=== PATIENT | female | born 1945 | race Caucasian/White ===

== ENCOUNTER → 2016-12-05 | Outpatient (CLI) | payer OTHER | LOC: FIMAGING 09:46 | PROVIDERS: ATTEND Orthopaedic Surgery | DX: M17.12 Unilateral primary osteoarthritis, left knee (principal) ==

== ENCOUNTER 2016-12-19 09:25 | Observation (INO) | payer OTHER ==
[~2016-12-19 09:25] MED LIST: ACETAMINOPHEN 325 MG TAB PO ONE; CEFAZOLIN 2 GM/DEXTR 100 ML IV ONE; CHLORHEXIDINE GLUC HIBICLENS 118 ML BTL TP ONE; DEXAMETHASONE 4 MG/ML VIAL IVP ONE; FAMOTIDINE 20 MG TAB PO ONE; ROPI/epiNEPH/KETOROLAC JOINT COCKTAIL IU ONE; TRANEXAMIC ACID 3,000 MG in NS 50 ML IRR ONE; TRANEXAMIC ACID 3,000 MG/50 ML BAG IRR ONE; VANCOMYCIN 1 GM VIAL ONE
[2016-12-19] MEDS ORDERED: ACETAMINOPHEN 325 MG TAB ONE (09:47)
[2016-12-19] MEDS ORDERED: CEFAZOLIN 2 GM/DEXTROSE/100 ML BAG IV ONE (09:47)
[2016-12-19] MEDS ORDERED: DEXAMETHASONE 4 MG/ML VIAL ONE (09:47)
[2016-12-19] MEDS ORDERED: FAMOTIDINE 20 MG TAB ONE (09:47)
[2016-12-19] MEDS ORDERED: LR 1,000 ML IV ONE (10:23)
[2016-12-19] MEDS ORDERED: PROPOFOL/EMULSION 500 MG/50 ML BOTTLE IV ONE (11:18)
[2016-12-19] MEDS ORDERED: LIDOCAINE 2% 100 MG/5 ML SYR ONE (11:18)
[2016-12-19] MEDS ORDERED: MIDAZOLAM 2 MG/2 ML VIAL ONE (11:44)
[2016-12-19] MEDS ORDERED: ROPIVACAINE HCL 150 MG/30 ML INJ ONE (12:43)
[2016-12-19] MEDS ORDERED: TEMAZEPAM 15 MG CAP PO PRN (13:26)
[2016-12-19] MEDS ORDERED: PROMETHAZINE HCL 25 MG/ML INJ IVP PRN (13:26)
[2016-12-19] MEDS ORDERED: CYCLOBENZAPRINE 10 MG TAB PO PRN (13:26)
[2016-12-19] MEDS ORDERED: POLYETHYLENE GLYCOL 3350 17 GM PKT PO PRN (13:26)
[2016-12-19] MEDS ORDERED: MAGNESIUM HYDROXIDE 30 ML UDCUP PO PRN (13:26)
[2016-12-19] MEDS ORDERED: METOCLOPRAMIDE 10 MG/2 ML VIAL IVP PRN (13:26)
[2016-12-19] MEDS ORDERED: ONDANSETRON 4 MG/2 ML VIAL IVP PRN (13:26)
[2016-12-19] MEDS ORDERED: diphenhydrAMINE 25 MG CAP PO PRN (13:26)
[2016-12-19] MEDS ORDERED: PHARMACY PAIN CONSULT 1 EA MISC PRN (13:26)
[2016-12-19] MEDS ORDERED: DIPHENOXYLATE/ATROPINE LOMOTIL 1 TAB PO PRN (13:26)
[2016-12-19] MEDS ORDERED: LACTULOSE 20 GM/30 ML UDCUP PO PRN (13:26)
[2016-12-19] MEDS ORDERED: ONDANSETRON DISINTEGRATING 4 MG TAB PO PRN (13:26)
[2016-12-19] MEDS ORDERED: PROMETHAZINE HCL 25 MG SUPPR PR PRN (13:26)
[2016-12-19] MEDS ORDERED: BISACODYL 10 MG SUPP PR PRN (13:26)
--- NOTE | 2016-12-19 13:26 | POSTOPPROG ---
Post Op Note Date of Operation: 12/19/16 Surgeon: Cassidy Dueñas Exhauster Engineer: chung dueñas Anesthesiologist: dr. white Anesthesia: Spinal, Other (Specify) (adductor canal block) Pre-op Diagnosis: left knee OA Post-op Diagnosis: same Indication: left knee pain due to OA that failed conservative measures Procedure: left medial knee arthroplasty Findings: severe medial knee OA Inf/Abcess present in the surg proc area at time of surgery?: No EBL: 50-100
[2016-12-19] MEDS ORDERED: LR 1,000 ML IV SCH (13:30)
[2016-12-19] MEDS ORDERED: fentaNYL 100 MCG/2 ML INJ ONE (13:58)
[2016-12-19] MEDS: oxyCODONE IR 5 MG TAB PO PRN ×2 (17:04→22:18)
[2016-12-19] MEDS: ACETAMINOPHEN 325 MG TAB PO SCH ×2 (17:04→23:58)
[2016-12-19] MEDS: ceFAZolin 2 GM/DEXTROSE 100 ML IV SCH (19:43)
[2016-12-19] MEDS ORDERED: NON-FORMULARY NEW DRUG (Glimepiride [Amaryl] 4 MG) PO SCH (21:00)
[2016-12-19] MEDS ORDERED: D50W 25 GM/50 ML SYR IVP PRN (21:53)
[2016-12-19] MEDS: GLIMEPIRIDE 2 MG TAB PO SCH (21:56)
[2016-12-19] MEDS: FAMOTIDINE 20 MG TAB PO SCH (21:56)
[2016-12-19] MEDS: ASPIRIN 325 MG TAB PO SCH (21:56)
[2016-12-19] MEDS: SENNOSIDES/DOCUSATE SODIUM TAB PO SCH (21:57)
[2016-12-19] MEDS: INSULIN LISPRO 100 UNIT/ML SC SCH (22:02)
[2016-12-19 23:37] VITALS: RESP 16
[2016-12-20] MEDS: ceFAZolin 2 GM/DEXTROSE 100 ML IV SCH (04:03)
[2016-12-20] MEDS: oxyCODONE IR 5 MG TAB PO PRN ×3 (04:09→11:12)
[2016-12-20 05:30] LABS: HEMATOCRIT 36.6 % (38.0-47.0)
[2016-12-20] MEDS: ACETAMINOPHEN 325 MG TAB PO SCH ×2 (05:36→11:13)
[2016-12-20 07:42] VITALS: BP 135/74; PULSE 51; TEMP 97.5; O2SAT 94
[2016-12-20] MEDS: INSULIN LISPRO 100 UNIT/ML SC SCH (07:47)
[2016-12-20] MEDS: ASPIRIN 325 MG TAB PO SCH (07:55)
[2016-12-20] MEDS: GLIMEPIRIDE 2 MG TAB PO SCH (07:55)
[2016-12-20] MEDS: FAMOTIDINE 20 MG TAB PO SCH (07:55)
[2016-12-20] MEDS: SENNOSIDES/DOCUSATE SODIUM TAB PO SCH (07:56)
--- NOTE | 2016-12-20 08:15 | SOAPPROG ---
SOAP Progress Note Assessment/Plan: Assessment: Patient is doing well POD 1 s/p L med MPL Pain management: pain is well controlled on oral pain meds. VTE ppx: recommend aspirin daily for 3 weeks, cont ERLINDA and SCDs Anemia: level is expected initially postop. Asymptomatic. Continue to monitor D/c planning: d/c to home today pending release from PT hyperglycemia: recommend insulin sliding scale last evening. BG improved this morning. Plan: 12/20/16 08:14 Subjective: Pat is resting comfortably, denies SOB, chest pain and N/V. Objective: Vital Signs Temp Pulse Resp BP Pulse Ox 36.4 C 51 L 16 135/74 H 94 12/20/16 07:40 12/20/16 07:40 12/20/16 07:40 12/20/16 07:55 12/20/16 07:40 Laboratory Results 12/20/16 04:23 12/19/16 12/20/16 12/21/16 05:59 05:59 05:59 Intake Total 4108 100 Output Total 2850 250 Balance 1258 -150 LLE: incision dressing is clean and dry, NVI, +pf/df ICD10 Worksheet Patient Problems: Problems Problem Status Onset Primary localized osteoarthritis of left knee Acute
[2016-12-20] MEDS ORDERED: CITALOPRAM 20 MG TAB PO SCH (09:00)
[2016-12-20] MEDS ORDERED: LISINOPRIL/HCTZ 20/12.5MG 1 EA TAB PO SCH (09:00)
[2016-12-20] MEDS ORDERED: NON-FORMULARY NEW DRUG (Simvastatin [Zocor] 20 MG) PO SCH (09:00)
[2016-12-20] MEDS ORDERED: ATORVASTATIN CALCIUM 10 MG TAB PO SCH (09:00)
--- NOTE | 2016-12-20 15:11 | GOP ---
[f rep st] OPERATIVE REPORT DATE OF OPERATION: 12/19/2016 SURGEON: Christa Lazaro MD EMBOSSING MACHINE OPERATOR: QUIQUE Beal. ANESTHESIA: Spinal. PREOPERATIVE DIAGNOSIS: Left knee osteoarthritis. POSTOPERATIVE DIAGNOSIS: Left knee osteoarthritis. PROCEDURE PERFORMED: Left medial compartment partial knee replacement with computer navigation and robotic assist. FINDINGS/PATHOLOGY: Severe medial compartment osteoarthritis. ESTIMATED BLOOD LOSS: 30 cc. DESCRIPTION OF PROCEDURE: The patient was brought to the operating room and placed on the table in supine position. Spinal anesthesia was induced without difficulty. A pneumatic tourniquet was applied about the left proximal thigh and the leg was prepped and draped in sterile fashion. Attention was turned first to the distal aspect of the left femur. At 3 cm proximal to the lateral rise of the femur, 2 percutaneous half pins were placed for fixation of the femoral array. In a similar fashion, 2 pins were placed anterolateral on the tibia for fixation of the tibial array. External land marking and registration of the hip center was performed without difficulty. After exsanguination by elevation, the tourniquet was inflated to 250 mmHg. Incision was made from the tibial tuberosity to the superior pole of the patella. Dissection was carried out through the subcutaneous tissue to the deep fascia using Bovie electrocautery for hemostasis. Medial parapatellar arthrotomy was carried out to the superior pole of the patella. The medial collateral ligament was elevated and the infrapatellar fat pad was resected. Internal femoral and tibial registration was carried out without difficulty and the femoral and tibial checkpoints were placed and verified for accuracy. Attention was turned to the femur. The foot print for the size 4 femoral component was cut with the 6 mm bur using the [employer] robotic system and verified for accuracy against the CT based plan. The hole was cut for the femoral post. In a similar fashion, the 6 mm bur was used to cut the foot print for the size 4 tibial component using the CHARLIE system and verified for accuracy against the CT based plan. Attention was turned to the posterior aspect of the knee and remnants of the medial meniscus were excised. The posterior capsule was injected with ropivacaine, epinephrine and Toradol. Trial reduction was carried out and there was excellent range of motion, alignment and stability using the size 4 femoral component and the size 4 tibial component. 4 x 8 polyethylene. All trials were then removed. The joint was thoroughly irrigated and carefully dried. One package of cement and 1 gram of vancomycin were mixed in the vacuum mixer and placed on the fixation surfaces of all components. The components were implanted and all excess cement was thoroughly removed. Implant placement was verified against the CT view plan and found to be excellent. The tourniquet was deflated and all bleeders were coagulated. The wound was thoroughly irrigated and closed using interrupted sutures of 2-0 Vicryl for the joint capsule. The subcu was closed with 3-0 Vicryl and the skin with 4-0 Monocryl. Dermabond and Steri-Strips were applied, followed by a compressive dressing. The patient was then moved from the operating room to the recovery room in good condition, having tolerated the procedure well. CASE CLASSIFICATION: Clean. /[id number]/MODL MTDD
== END 2016-12-20 11:38 | disposition home or self-care (01) ==
LOC: F3N 09:25 → INTOOBSV 09:25 → F3N 14:31
PROVIDERS: ADMIT Orthopaedic Surgery; ATTEND Orthopaedic Surgery
PROC: 0SRD0JZ Replacement of Left Knee Joint with Synthetic Substitute, Open Approach (ICD-10-PCS; principal; 2016-12-19 12:15)
PROC: 8E0YXBG Computer Assisted Procedure of Lower Extremity, With Computerized Tomography (ICD-10-PCS; principal; 2016-12-19 12:15)
PROC: 8E0YXCZ Robotic Assisted Procedure of Lower Extremity (ICD-10-PCS; principal; 2016-12-19 12:15)
DX: M17.12 Unilateral primary osteoarthritis, left knee (principal); E11.9 Type 2 diabetes mellitus without complications
CPT/HCPCS: 27446; 73560; 97116; 97161; 97165; C1713; C1776; G0378; J0171; J0690; J1100; J1885; J2001; J2250; J2704; J2795; J3010; J3370

== ENCOUNTER → 2017-02-05 | Outpatient (CLI) | payer OTHER | LOC: FIMAGING 15:29 | PROVIDERS: ATTEND Internal Medicine | DX: Z12.31 Encounter for screening mammogram for malignant neoplasm of breast (principal) | CPT/HCPCS: G0202 ==

== ENCOUNTER → 2017-02-19 | Outpatient (CLI) | payer OTHER | LOC: FIMAGING 12:19 | PROVIDERS: ATTEND Internal Medicine | DX: R92.8 Other abnormal and inconclusive findings on diagnostic imaging of breast (principal) ==

== ENCOUNTER → 2017-11-28 | Outpatient (CLI) | payer OTHER | LOC: FIMAGING 09:27 | PROVIDERS: ATTEND Internal Medicine | DX: N63.20 Unspecified lump in the left breast, unspecified quadrant (principal) ==